=== PATIENT | male | born 1980 | race Caucasian/White ===

== ENCOUNTER 2019-03-25 17:32 | Emergency (ER) | payer OTHER ==
[2019-03-25] MEDS ORDERED: Lidocaine 2% w/Epinephrine 1:200K 20 ML VIAL ONE (17:57)
[2019-03-25] MEDS ORDERED: Adacel (T-DAP) 0.5 ML SYRINGE ONE (18:10)
[2019-03-26] MEDS ORDERED: Sterile Water Irrigation 250 ML BOT ONE (17:39)
== END 2019-03-25 18:17 | disposition home or self-care (01) ==
LOC: MADERS 17:32
DX: S81.812A Laceration without foreign body, left lower leg, initial encounter (principal); W27.0XXA Contact with workbench tool, initial encounter
CPT/HCPCS: 12002; 90471; 90715